=== PATIENT | male | born 1945 | race Caucasian/White ===

== ENCOUNTER 2022-07-05 15:01 | Emergency (ER) | payer OTHER ==
[2022-07-05 15:54] VITALS: TEMP 98.1; BMI 36.9
[2022-07-05 19:28] LABS: BASO % 0.4 % (0-2.0); EOS % 0.2 % (0-4.5); HEMATOCRIT 41.7 % (35.4-49); HEMOGLOBIN 14.2 GM/dL (11.7-16.9); LYMPH % 6.6 % (8-40); MCH 30.5 pg (25.7-33.7); MEAN CELL VOLUME 89.6 fl (80-96); MEAN PLT VOLUME 8.2 fl (7.5-11.1); NEUT % 82.8 % (42.8-82.8); PLATELET COUNT 168 10^3/uL (134-434); RBC 4.66 M/mm3 (4.00-5.60); RDW 13.5 % (11.9-15.9); WHITE BLOOD COUNT 6.4 K/mm3 (4.0-10.0)
[2022-07-05 19:33] LABS: INR 1.09 (0.83-1.09); PROTHROMBIN TIME (PATIENT) 12.5 SEC (9.7-13.0)
[2022-07-05 19:36] LABS: ACTIVATED PTT 28.5 SECONDS (25.2-36.5)
[2022-07-05 19:39] VITALS: BP 154/78; PULSE 100; RESP 18
[2022-07-05 19:45] LABS: BLOOD UREA NITROGEN 16.2 mg/dL (7-18)
[2022-07-05 19:46] LABS: ALBUMIN 3.8 g/dl (3.4-5.0)
[2022-07-05 19:50] LABS: CREATININE 1.2 mg/dL (0.55-1.3)
[2022-07-05 19:51] LABS: BILIRUBIN,TOTAL 0.7 mg/dL (0.2-1); TOT PROT 7.3 g/dl (6.4-8.2)
[2022-07-05 19:53] LABS: N-TERMINAL BNP 429.9 pg/ml (5-450)
== END 2022-07-05 20:50 | disposition home or self-care (01) ==
LOC: JER 15:01
DX: S80.822A Blister (nonthermal), left lower leg, initial encounter (principal); R60.0 Localized edema; Y99.9 Unspecified external cause status
CPT/HCPCS: 0241U-QW; 36415; 71046-TC-FY; 80053; 83880; 84484; 85025; 85610; 85730; 93005; 93010; 99285-25